=== PATIENT | female | born 1995 ===

== ENCOUNTER 2016-12-03 00:35 | Inpatient (IN) | payer MEDICAID ==
[~2016-12-03] VITALS: Ht 149.9 cm; Wt 60.9 kg
[2016-12-03] MEDS ORDERED: LORazepam 1 MG TABLET PO PRN (02:30)
[2016-12-03] MEDS ORDERED: ZOLPIDEM TARTRATE 10 MG TABLET PO PRN (02:30)
[2016-12-03 02:50] VITALS: BP 131/70
[2016-12-03] MEDS ORDERED: PNEUMOCOCCAL VACCINE POLYVALENT 0.5 ML VIAL [PPSV23] IM ONE (07:00)
[2016-12-03] MEDS ORDERED: INFLUENZA VIRUS VACCINE QVS 2016-17 (3YR+)/PF 60 MCG/0.5 ML SYRINGE IM ONE (07:00)
[2016-12-03 08:07] VITALS: BP 120/56
[2016-12-03] MEDS ORDERED: ACETAMINOPHEN 325 MG TABLET PO PRN (08:15)
[2016-12-03] MEDS ORDERED: IBUPROFEN 400 MG TABLET PO PRN (08:15)
[2016-12-03] MEDS ORDERED: FLUO-191 PO ×2 (09:49→10:02)
[2016-12-03] MEDS ORDERED: LEVO1TAB58 PO (10:02)
[2016-12-03] MEDS ORDERED: ALPR0.5T8 PO (10:02)
[2016-12-03] MEDS ORDERED: RISP.5 PO (10:02)
[2016-12-03] MEDS: FLUoxetine HCL 20 MG CAPSULE PO SCH (11:00)
[2016-12-03] MEDS ORDERED: ALBUTEROL SULFATE HFA 90 MCG/PUFF 8 GM INHALER IH PRN (15:00)
[2016-12-03] MEDS: DIVALPROEX SODIUM 500 MG DR TABLET PO SCH (16:13)
[2016-12-03 16:25] VITALS: BP 120/81
[2016-12-04 08:29] VITALS: BP 129/76
[2016-12-04] MEDS ORDERED: DIVA500T35 PO (09:05)
[2016-12-04] MEDS: DIVALPROEX SODIUM 500 MG DR TABLET PO SCH ×2 (09:48→16:07)
[2016-12-04] MEDS: FLUoxetine HCL 20 MG CAPSULE PO SCH (09:48)
[2016-12-04 16:05] VITALS: BP 124/78
== END 2016-12-04 17:30 | disposition home or self-care (01) | DRG 754 ==
LOC: EDUNIT# 00:35 → B3A 02:37 → EDSTATUS 04:01
PROVIDERS: ADMIT Psychiatry & Neurology Psychiatry; ATTEND Psychiatry & Neurology Psychiatry
DX: F32.9 Major depressive disorder, single episode, unspecified (principal); R45.851 Suicidal ideations; J45.909 Unspecified asthma, uncomplicated; F41.9 Anxiety disorder, unspecified; Z28.21 Immunization not carried out because of patient refusal
CPT/HCPCS: J3535